=== PATIENT | female | born 1965 | race African-American/Black ===

== ENCOUNTER 2018-03-15 00:16 | Emergency (ER) | payer OTHER ==
[~2018-03-15] VITALS: Ht 167.6 cm; Wt 104.5 kg
[~2018-03-15 00:16] MED LIST: AMLODIPINE5 MG OR; ANTI-FUNGAL12 EX; BACTRIM DS1 TAB OR; CIPRO500 MG OR; DIFLUCAN150 MG OR; LISINOPRIL10 MG OR; LISINOPRIL20 M1 OR; LORTAB 5 OR; LORTAB5 OR; METFORMIN500 M1 OR; NAPROXEN500 MG OR; PENICILLN VK500 MG OR; PERCOCET 5/325M1 TAB OR; SIMVASTATIN20 MG OR; TUSSIONEX1 ML OR; ZESTRIL10 MG OR; ZITHROMAX250 MG OR; ZOFRAN ODT4 MG OR; ZOFRAN ODT4 MG SL
[2018-03-15 01:07] LABS: HEMOGLOBIN 12.9 g/dl (12.0-16.0); IMMATURE GRANULOCYTES 0.1 % (0.0-1.0); MEAN CELL VOLUME 85.8 fL CALC (80.0-100.0); MEAN CORPUSCULAR HGB 29.1 pG CALC (26.0-32.0); MEAN CORPUSCULAR HGB CONC 33.9 g/L CALC (32.0-36.0); NEUT# 4.7 thou/uL (2.00-7.15); RED BLOOD COUNT 4.43 mill/uL (4.20-5.60); RED CELL DISTRI WIDTH 12.2 % (11.5-15.5)
[2018-03-15 01:09] LABS: ALBUMIN 4.1 g/dL (3.2-5.0); ALKALINE PHOSPHATASE 75 u/l (38-126); ANION GAP 16 (6-22 (CALC)); BILIRUBIN, TOTAL 0.4 mg/dL (0.0-1.4); BUN 14 mg/dL (7-17); BUN/CREATININE RATIO 17 (12-20 (CALC)); CARBON DIOXIDE 26 mmol/l (22-30); CHLORIDE 100 mmol/l (95-108); CREATININE 0.8 mg/dL (0.5-1.0); GFR > 60 ML/MIN (>=60 (CALC)); GFR FOR AFR.AMER. > 60 ML/MIN (>=60 (CALC)); POTASSIUM 4.1 mmol/l (3.5-5.1); SGOT/AST 17 u/l (14-36); SGPT/ALT 28 u/l (9-52); SODIUM 138 mmol/l (137-146); TOTAL PROTEIN 8.1 g/dL (6.3-8.2)
[2018-03-15 02:05] LABS: MYOGLOBIN 16 ng/mL (0 - 62)
[2018-03-15 03:30] VITALS: BP 162/70
[2018-03-15 04:47] LABS: BARBITURATES NEGATIVE (NEGATIVE); COCAINE NEGATIVE (NEGATIVE); METHADONE NEGATIVE (NEGATIVE); OXCYCODONE NEGATIVE (NEGATIVE); TETRAHYDROCANNABIONOL NEGATIVE (NEGATIVE); TRICYLIC ANTIDEPRESSANTS NEGATIVE (NEGATIVE)
== END 2018-03-15 04:10 | disposition short-term general hospital (02) | DRG 639 ==
LOC: ED 00:16
PROVIDERS: Emergency Medicine
DX: E11.65 Type 2 diabetes mellitus with hyperglycemia (principal); G93.9 Disorder of brain, unspecified; I10 Essential (primary) hypertension; Z79.84 Long term (current) use of oral hypoglycemic drugs